=== PATIENT | female | born 1985 | race American Indian/Alaskan Native ===

== ENCOUNTER → 2017-07-28 13:26 | Outpatient (CLI) | payer OTHER, SELFPAY ==
[2017-07-28 15:54] LABS: Ferritin 347 ng/mL (8-252); Iron 81 ug/dL (50-170); Iron Binding Capacity,Total 337 ug/dL (250-450)
== END ==
LOC: MTLAB 13:30
PROVIDERS: Family Provider Internal Medicine; PCP Internal Medicine; Visit Provider Internal Medicine Pulmonary Disease
DX: D64.9 Anemia, unspecified (principal); G47.10 Hypersomnia, unspecified
CPT/HCPCS: 36415; 82728; 83540; 83550

== ENCOUNTER → 2018-12-20 13:26 | Outpatient (CLI) | payer SELFPAY ==
--- NOTE | 2018-12-20 13:36 | CT_ITS ---
STUDY: CARDIAC CALCIUM SCORING - CT CHEST REASON FOR EXAM: Female, 33 years old. Screening. Abnormal cholesterol. RADIATION DOSAGE (If Supplied By Facility): CTDIvol = ( 12.19 ) mGy, DLP = ( 195.04 ) mGycm TECHNIQUE: Axial non-enhanced images were acquired through the heart for the sole purpose of measuring coronary artery calcium. Individualized dose optimization techniques were used for this CT. COMPARISON: None. FINDINGS: Please see the patient's medical record for a personalized calcium score. There is a 5 mm nodule in the left lower lobe (image 20 series 3). There is a calcified granuloma in the right lower lobe. There are calcified mediastinal and right hilar lymph nodes, consistent with prior granulomatous disease. CT/Limited Chest CT w/CCTA IMPRESSION: Please see the patient's medical record for a personalized calcium score. 5 mm nodule in the left lower lobe. A dedicated chest CT is recommended. Evidence of prior granulomatous disease. Please go to: [email or web address] , for a description of the calculator. Electronically Signed: Eduardo Freedman, at 15:09 EDT Tel , Service support ,
[2018-12-20 13:49] VITALS: BP 105/70; PULSE 71; RESP 16; O2SAT 100; BMI 26.2
--- NOTE | 2018-12-21 12:55 | CA.SCORE ---
Calcium Scoring Date of Study:: 12/21/18 Coronary Calcium Scoring: High-resolution Computed Tomographic imaging of the chest was performed on [12/20/2018], with particular attention paid to the coronary arteries. Images from the examination were analyzed for the presence and extent of coronary artery calcification , using coronary calcium quantification software. The patient tolerated the procedure well and there were no complications. The results of the coronary calcification analysis are provided below. - Findings Left Main (LM): 0 Left Anterior Descending (LAD): 0 Left Circumflex (LCX): 0 Right Coronary Artery (RCA): 0 Total Agatston Score: 0 Percentile Rankin Calcium Scoring Interpretation: 0 No identifiable atherosclerotic plaque. Very low cardiovascular disease risk. <5% chance of presence coronary artery disease A Negative Examination 1-10 Minimal Plaque burden. Significant coronary artery disease very unlikely. 11-100 Mild plaque burden. Likely mild or minimal coronary atherosclerosis. 101-400 Moderate plaque burden Moderate non-obstructive coronary artery disease highly likely. Over 400 Extensive plaque burden. High likelihood of at least one significant coronary stenosis (>50% diameter) Conclusion: The total calcium score (0 is below the 50th percentile for women under the ages of 40. (Exact percentile calculated to be 50%; this means 49% of the population is similar calcium score and 50% of the population is a higher calcium score than this patient.) A full evaluation of cardiac risk including assessment of all conventional risk factors, and the scores and percentile rankings reported herein should be evaluated in this context.
== END ==
PROVIDERS: Family Provider Internal Medicine; PCP Internal Medicine; Referring Provider Internal Medicine; Visit Provider Internal Medicine
DX: Z13.6 Encounter for screening for cardiovascular disorders (principal); E78.00 Pure hypercholesterolemia, unspecified
CPT/HCPCS: 75571; 76380

== ENCOUNTER → 2019-10-03 16:28 | Outpatient (CLI) | payer OTHER, SELFPAY ==
[2019-05-26 17:29] VITALS: BMI 26.2
[2019-10-03 18:12] LABS: Absolute Lymphocyte Count 1.93 X10^3/uL (0.83-4.51); Absolute Neutrophil Count 4.3 X10^3/uL (2.0-7.7); Basophil# 0.03 X10^3/uL; Basophil% 0.4 % (0-1); Eosinophil# 0.15 X10^3/uL; Eosinophils% 2.2 % (0-5); Hematocrit 36.7 % (37-47); Hemoglobin 11.7 g/dL (12.0-15.0); Lymphocyte # 1.93 X10^3/ul (4.0); Lymphocyte % 28.1 % (19-41); Mean Corp Hgb Conc 31.9 g/dL (32-36); Mean Corpuscular Hgb 28.4 pg (27.0-32.0); Mean Corpuscular Volume 89.1 fL (81-99); Mean Platelet Vol. 10.1 fl (6.2-12.0); Monocyte# 0.45 X10^3/uL; Monocyte% 6.6 % (0-10); NRBC Flagged by Analyzer 0 % (0-5); Neutrophil # 4.28 X10^3/uL (2.7-7.7); Neutrophil % 62.4 % (47-70); Platelet Count 336 K/mm3 (150-450); RBC Distribution Width CV 12.7 % (11.6-14.6); RBC Distribution Width SD 41.1 fl (35.1-43.9); Red Blood Count 4.12 M/mm3 (4.2-5.4); White Blood Count 6.9 K/mm3 (4.4-11.0)
[2019-10-03 18:45] LABS: ALB/GLOB Ratio 0.9 RATIO (0.9-2.4); AST(SGOT) 79 U/L (15-37); Alanine Aminotransfer ALT/SGPT 139 U/L (13-56); Albumin, Serum 3.7 g/dL (3.2-5.0); Alkaline Phosphatase 86 U/L (45-117); Anion Gap 6 (5-15); BUN 5 mg/dL (7-18); BUN/Creat Ratio 6.8 RATIO (10-20); Calcium,Total 8.2 mg/dL (8.5-10.1); Chloride 104 mmol/L (98-107); Creatinine, Serum 0.73 mg/dL (0.55-1.02); EST Glomerular Filtration Rate 96 mL/min (>60); Est Glom Filt Rate - Afr Amer 116 mL/min (>60); Free T3 2.3 pg/mL (2.18-3.98); Globulin 3.9 g/dL (2.2-4.2); Glucose 94 mg/dL (74-106); Potassium 3.6 mmol/L (3.5-5.1); Protein, Total 7.6 g/dL (6.4-8.2); Sodium Level 138 mmol/L (136-145); T4 Free Direct 0.79 ng/dL (0.76-1.46); Thyroid Stim Hormone (TSH) 2.31 uIU/mL (0.358-3.74)
[2019-10-03 20:19] LABS: D-Dimer Quantitative (DVT/PE) <= 0.27 FEU/ug/m (0.27-0.49)
== END ==
LOC: MTLAB 16:29
PROVIDERS: PCP Internal Medicine; Referring Provider Nurse Practitioner; Visit Provider Nurse Practitioner
DX: R06.02 Shortness of breath (principal); E16.2 Hypoglycemia, unspecified
CPT/HCPCS: 36415; 80053; 84439; 84443; 84481; 85025; 85379

== ENCOUNTER → 2019-10-12 17:58 | Outpatient (CLI) | payer OTHER, SELFPAY ==
[2019-05-26 17:29] VITALS: BMI 26.2
--- NOTE | 2019-10-12 16:10 | CT_ITS ---
STUDY: CT ABDOMEN AND PELVIS WITH CONTRAST REASON FOR EXAM: Female, 34 years old. LUNG NODULE, HYPOGLYCEMIA,ELEVATED LIVER ENZYMES RADIATION DOSAGE (If Supplied By Facility): CTDIvol = ( 16.85 ) mGy, DLP = ( 842.74 ) mGycm TECHNIQUE: Transaxial images were obtained from the dome of the diaphragm to the symphysis pubis with oral contrast. Oral and amp; IV Readi-CAT and amp; 100mL Isovue-300 was administered. Sagittal and coronal images were reconstructed. Individualized dose optimization techniques were used for this CT. COMPARISON: CT of the abdomen and pelvis dated March 26, 2016. CT of the chest dated October 12, 2019 FINDINGS: A small calcified granuloma is present in the right lower lobe. Small bilateral pleural effusions are present. There is decreased attenuation of the liver consistent with steatosis, mildly enlarged at 18 cm. The gallbladder is contracted. There are multiple benign calcified granulomata of the spleen. Normal pancreas. Normal bilateral adrenal glands. A small cyst is present in the right kidney. Normal left kidney. Normal visualized stomach. Normal small intestine. Normal colon. The appendix is visualized and appears normal. Normal abdominal aorta. Normal inferior vena cava. Normal retroperitoneum. Normal urinary bladder. Prominent hypodensity seen in the endometrial cavity suggests fluid or hypertrophy of the endometrial lining, most likely related to the menstrual cycle. Unremarkable adnexa. Small the both these cysts are present. Normal abdominal wall. Normal osseous structures. CT/Abdomen/Pelvis WITH Contrast IMPRESSION: 1. Prominent hypodensity seen in the endometrial cavity suggests fluid or hypertrophy of the endometrial lining, most likely related to the menstrual cycle. Unremarkable adnexa. Small the both these cysts are present. 2. Benign fatty infiltration of the liver are mildly enlarged liver. 3. Small benign calcified granuloma of the right lower lobe and small bilateral pleural effusions. Electronically Signed: Manan Pina MD at 19:33 EDT , Service support ,
--- NOTE | 2019-10-12 18:10 | CT_ITS ---
STUDY: CT CHEST WITH CONTRAST REASON FOR EXAM: Female, 34 years old. LUNG NODULE RADIATION DOSAGE (If Supplied By Facility): CTDIvol = ( 14.18 ) mGy, DLP = ( 275.99 ) mGycm TECHNIQUE: Transaxial imaging was performed following intravenous administration of Oral and amp; IV Readi-CAT and amp; 100mL Isovue-300. Individualized dose optimization techniques were used for this CT. COMPARISON: CT cardiac calcium scoring dated December 20, 2018. FINDINGS: 5 mm nodule in the superior segment of the left lower lobe reidentified and unchanged from the prior study, see image #49/95 series 6. No additional nodules are seen in either lung. No consolidation. No cystic emphysematous changes. Small bilateral pleural effusions are present. Normal heart size and pericardium. Normal mediastinum. Small calcified right hilar nodules reidentified. Normal enhanced pulmonary arteries. Normal aorta arch and descending thoracic aorta. Normal osseous structures. There is no demonstrated acute or significant abnormality of the visualized upper abdomen. Benign fatty infiltration of the liver noted. The liver is also mildly enlarged. CT/Chest WITH Contrast IMPRESSION: 1. Stable 5 mm nodule in the left lower lobe. Follow-up evaluation should continue until one year of stability has been confirmed on imaging studies. 2. Small bilateral pleural effusions. Electronically Signed: Manan Pina MD at 19:15 EDT , Service support ,
== END ==
LOC: CT 18:01
PROVIDERS: PCP Internal Medicine; Referring Provider Internal Medicine; Visit Provider Internal Medicine
DX: E78.00 Pure hypercholesterolemia, unspecified (principal); R74.8 Abnormal levels of other serum enzymes; E16.2 Hypoglycemia, unspecified
CPT/HCPCS: 71260; 74177; Q9967

== ENCOUNTER → 2019-10-25 15:43 | Outpatient (CLI) | payer OTHER, SELFPAY ==
[2019-05-26 17:29] VITALS: BMI 26.2
--- NOTE | 2019-10-25 15:45 | BI_ITS ---
MAMMOGRAPHY - BILATERAL SCREENING 3-D TOMOSYNTHESIS REASON FOR EXAM: Female, 34 years old. Routine screening PERTINENT HISTORY: FAM HX MAT GMA AGE 60S, MAT AUNT AGE 43, PAT GMA AGE -- NO SX. TECHNIQUE: 2-D mammograms and 3-D Tomosynthesis of the breast (s) were performed. CAD was performed. COMPARISON: None. FINDINGS: The breast composition is heterogeneously dense that can obscure small breast masses. Scattered benign calcifications are seen. No dense spiculated masses or suspicious microcalcifications are identified. No architectural distortion is identified. There is no skin thickening or retraction. There are fairly well-defined nodules in the right breast, I suspect benignity but there are no previous studies available for comparison, further evaluation of the upper outer quadrant of the right breast with ultrasound is recommended. BI/SCREEN MAMM (CAD) W/KENYA BILAT IMPRESSION: Further evaluation of the upper outer quadrant of the right breast with ultrasound recommended Left breast demonstrates no suspicious mammographic findings ASSESSMENT CATEGORY: BIRADS Category 0: Incomplete. Need additional imaging evaluation as above. A letter regarding these results will be sent to the patient by the facility within 30 days. FOLLOW UP RECOMMENDATION: Ultrasound Recommended. (I) Approximately 10% of breast cancers are not detected by mammography. A normal mammogram should not delay biopsy of a clinically suspicious abnormality. Electronically Signed: Louis Mccord MD at 7:55 EDT , Service support ,
== END ==
PROVIDERS: PCP Internal Medicine; Referring Provider Nurse Practitioner; Visit Provider Nurse Practitioner
DX: Z12.31 Encounter for screening mammogram for malignant neoplasm of breast (principal)
CPT/HCPCS: 77063; 77067

== ENCOUNTER → 2019-10-28 12:39 | Outpatient (CLI) | payer OTHER, SELFPAY ==
[2019-05-26 17:29] VITALS: BMI 26.2
--- NOTE | 2019-10-28 12:41 | US_ITS ---
STUDY: ULTRASOUND BREAST - RIGHT REASON FOR EXAM: Female, 34 years old. Abnormal mammogram TECHNIQUE: Axial and longitudinal images of the RIGHT breast were performed with a high resolution ultrasound transducer. # OF IMAGES: 41 COMPARISON: 10/25/2019 FINDINGS: RIGHT Breast: Ultrasound evaluation of the right breast, in the upper outer quadrant, shows two simple cysts, larger measures 1.0 x 0.9 x 0.8 cm, smaller measures 0.6 x 0.6 x 0.4 cm. No suspicious shadowing solid lesion, architectural distortion or clustered shadowing calcifications US/Breast Limited Unilateral IMPRESSION: No suspicious sonographic findings, simple cysts noted. ASSESSMENT CATEGORY: BIRADS Category 2: Benign. A letter regarding these results will be sent to the patient by the facility within 30 days. Electronically Signed: Louis Mccord MD at 13:32 EDT , Service support ,
== END ==
LOC: OPUS 12:40
PROVIDERS: PCP Internal Medicine; Referring Provider Nurse Practitioner; Visit Provider Nurse Practitioner
DX: N63.11 Unspecified lump in the right breast, upper outer quadrant (principal)
CPT/HCPCS: 76642

== ENCOUNTER → 2019-11-02 10:51 | Outpatient (CLI) | payer OTHER, SELFPAY ==
[2019-05-26 17:29] VITALS: BMI 26.2
--- NOTE | 2019-11-02 10:55 | RAD_ITS ---
STUDY: X-RAY CHEST REASON FOR EXAM: Female, 34 years old. CHEST PAIN PLEURAL EFFUSION TECHNIQUE: PA and lateral views of the chest. COMPARISON: None. FINDINGS: The lungs are clear and expanded. There is no demonstrated pleural abnormality. Normal size heart. Normal mediastinum and liliane. Normal visualized pulmonary arteries. Normal visualized aortic arch and descending thoracic aorta. Normal visualized thoracic spine. Normal visualized ribs, clavicles, and shoulders. There is no demonstrated abnormality of the visualized soft tissue structures of the upper abdomen. RAD/Chest PA and Lateral IMPRESSION: Normal x-ray examination of the chest. Electronically Signed: Stanislav Moody, at 11:49 EDT , Service support ,
--- NOTE | 2019-11-02 11:19 | RAD_ITS ---
STUDY: X-RAY CHEST REASON FOR EXAM: Female, 34 years old. CHEST PAIN PLEURAL EFFUSION TECHNIQUE: Bilateral decubiti. COMPARISON: None. FINDINGS: The lungs are clear and expanded. There is no demonstrated pleural abnormality. Normal size heart. Normal mediastinum and liliane. Normal visualized pulmonary arteries. Normal visualized aortic arch and descending thoracic aorta. Normal visualized thoracic spine. Normal visualized ribs, clavicles, and shoulders. There is no demonstrated abnormality of the visualized soft tissue structures of the upper abdomen. RAD/Special CXR (Obl/Decub/A/L) IMPRESSION: Normal x-ray examination of the chest. Electronically Signed: Stanislav Moody, at 11:49 EDT , Service support ,
== END ==
LOC: MTRAD 10:52
PROVIDERS: PCP Internal Medicine; Referring Provider Internal Medicine Pulmonary Disease; Visit Provider Internal Medicine Pulmonary Disease
DX: J90 Pleural effusion, not elsewhere classified (principal)
CPT/HCPCS: 71046

== ENCOUNTER → 2019-12-14 13:41 | Outpatient (CLI) | payer OTHER, SELFPAY ==
[2019-05-26 17:29] VITALS: BMI 26.2
[2019-11-19 17:22] VITALS: BMI 26.2
--- NOTE | 2019-12-14 13:46 | ECHOD_ITS ---
Reason For Study: Bilateral pleural effusions Procedure This was a 2D Doppler, Color Flow transthoracic echocardiogram. Exam performed in department. Left Ventricle Normal LV size. Left ventricular systolic function is normal. The estimated ejection fraction is 60 %. Stage 1 diastolic dysfunction. No regional wall motion abnormalities noted. Right Ventricle Normal RV size. Normal systolic function. Atria Normal left atrium. Normal right atrium. Mitral Valve Normal mitral valve. Tricuspid Valve Normal tricuspid valve. Aortic Valve Normal aortic valve. Trisinus/trileaflet aortic valve. Pulmonic Valve Normal pulmonic valve. Great Vessels Normal aortic root. The pulmonary artery is normal size. Normal inferior vena cava. Pericardium/Pleural No pericardial effusion. MMode/2D Measurements & Calculations LVIDd: 4.3 cm IVSd: 0.78 cm Ao root diam: 2.6 cm LVIDs: 2.6 cm LVPWd: 0.88 cm RVDd: 2.7 cm FS: 40.3 % LAV(MOD-bp): 29.2 ml LVAd ap4: 21.3 cm2 SV(MOD-sp4): 36.2 ml LAV(MOD-bp) Indexed: 16.2 ml/m2 EDV(MOD-sp4): 56.7 ml LAV(MOD-sp2): 28.5 ml EDV(sp4-el): 56.6 ml LAV(MOD-sp4): 27.5 ml LVAs ap4: 11.2 cm2 ESV(MOD-sp4): 20.5 ml ESV(sp4-el): 19.6 ml EF(MOD-sp4): 63.8 % EF(sp4-el): 65.4 % SV(sp4-el): 37.0 ml LA A4 area: 12.8 cm2 LA dimension(2D): 3.1 cm RA A4 area: 11.0 cm2 Doppler Measurements & Calculations MV E max daren: 61.6 cm/sec Lat Peak E' Daren: 10.4 cm/sec Med Peak E' Daren: 6.1 cm/sec MV A max daren: 74.8 cm/sec E/E' lat: 5.9 E/E' med: 10.1 MV E/A: 0.82 Ao V2 max: 120.2 cm/sec LV V1 max: 96.2 cm/sec PA V2 max: 107.7 cm/sec Ao max P.8 mmHg LV V1 max P.7 mmHg Interpretation Summary Normal LV size. Left ventricular systolic function is normal. The estimated ejection fraction is 60 %. Stage 1 diastolic dysfunction. No regional wall motion abnormalities noted. Ordering Physician: Dilma Simon Referring Physician: Dilma Simon Performed By: Sophie Baldwin RDCS
== END ==
LOC: CVS 13:43
PROVIDERS: PCP Internal Medicine; Referring Provider Nurse Practitioner; Visit Provider Nurse Practitioner
DX: R06.00 Dyspnea, unspecified (principal); R06.02 Shortness of breath
CPT/HCPCS: 93306

== ENCOUNTER → 2021-03-16 14:44 | Outpatient (CLI) | payer OTHER, SELFPAY ==
[2021-03-16 15:04] LABS: Mucous, Urine 0 SEEN /hpf (<or=2+); Red Blood Cells-Urine 0 SEEN /hpf (0-5)
[2021-03-16 15:12] LABS: Color, Urine Yellow (Yellow); Glucose, Dipstick Normal (Normal); Ketone-Dipstick Negative (Negative); Leukocyte Esterase-Dipstick Negative /ul (Negative); Nitrite-Dipstick Positive (Negative); Occult Blood-Urine Negative /ul (Negative); Protein-Dipstick Negative (Negative); Urine Clarity Clear (Clear); Urine Urobilinogen 8 mg/dl (Normal)
[2021-03-16 15:15] LABS: Urine Bilirubin Dipstick 6 mg/dL (Negative)
[2021-03-16 15:20] LABS: Bacteria 2+ /hpf (None Seen); Squamous Epithelial Cells - UA 5-10 SEEN /hpf (5-10); White Blood Cells 0-5 SEEN /hpf (0-5)
== END ==
PROVIDERS: PCP Internal Medicine; Referring Provider Nurse Practitioner Family; Visit Provider Nurse Practitioner Family
DX: N39.0 Urinary tract infection, site not specified (principal)
CPT/HCPCS: 81001; 87086; 87088; 87186

== ENCOUNTER 2021-04-16 15:22 | Outpatient (CLI) | payer OTHER, SELFPAY ==
[2021-04-16 15:47] VITALS: BP 107/75; PULSE 62; RESP 16; TEMP 36.7; O2SAT 100; BMI 35.5
[2021-04-16] MEDS: 0.9% Saline Lock 10 ML Syringe IV (15:57)
[2021-04-16 16:22] VITALS: BP 107/70; PULSE 99; RESP 16; TEMP 37; O2SAT 99
[2021-04-16 17:10] VITALS: BP 110/75; PULSE 60; RESP 16; TEMP 37; O2SAT 100
== END 2021-04-16 23:59 | disposition home or self-care (01) ==
LOC: MS3OUT 15:22 → MS3 15:23
PROVIDERS: PCP Internal Medicine; Referring Provider Nurse Practitioner Adult Health; Visit Provider Nurse Practitioner Adult Health
DX: Z23 Encounter for immunization (principal); U07.1 COVID-19
CPT/HCPCS: J7050; M0243; A4216; Q0244

== ENCOUNTER → 2024-08-31 | Outpatient (CLI) | payer OTHER, SELFPAY ==
--- NOTE | 2024-08-31 12:23 | BI_ITS ---
EXAM: SCRN MAMM (CAD)W/KENYA BILAT 08/31/2024 CLINICAL HISTORY: F, Age 39 y/o , SCREENING TECHNIQUE: Bilateral screening digital breast tomosynthesis with 2D and 3D images. Computer aided detection. COMPARISON: Prior exam(s) dated 10/25/2019, 10/28/2019. FINDINGS: TISSUE DENSITY: The breast tissue is heterogenously dense, which may obscure small masses. The mammogram demonstrates that the patient has dense breasts. Supplemental screening with whole breast ultrasound or MRI may be considered for further evaluation. Bilateral Breast Mammographic Findings: No significant masses, calcifications or other abnormalities are identified. BI/SCRN MAMM (CAD)W/KENYA BILAT IMPRESSION: Right Breast: BIRADS 1 NEGATIVE. Left Breast: BIRADS 1 NEGATIVE. OVERALL FINAL ASSESSMENT: BIRADS 1 NEGATIVE. RECOMMENDATION: Routine annual follow-up in 1 Year A letter with findings and recommendations will be mailed to the patient. Reading Location: [id number]
== END | disposition home or self-care (01) ==
PROVIDERS: PCP Internal Medicine; Referring Provider Internal Medicine; Visit Provider Internal Medicine
DX: Z12.31 Encounter for screening mammogram for malignant neoplasm of breast (principal)
CPT/HCPCS: 77063; 77067